=== PATIENT | male | born 1970 | race Caucasian/White ===

== ENCOUNTER → 2024-06-23 12:08 | Outpatient (REF) | payer BC, SELFPAY | LOC: HWRAD 12:08 | PROVIDERS: ATTENDING PHYSICIAN Family Medicine | DX: M75.82 Other shoulder lesions, left shoulder (principal) | CPT/HCPCS: 73030 ==

== ENCOUNTER → 2024-06-26 08:32 | Outpatient (REF) | payer BC, SELFPAY | LOC: HWRAD 08:32 | PROVIDERS: ATTENDING PHYSICIAN Family Medicine | DX: R91.1 Solitary pulmonary nodule (principal) | CPT/HCPCS: 71260; Q9967 ==